=== PATIENT | male | born 1955 | race American Indian/Alaskan Native ===

== ENCOUNTER 2021-04-20 06:57 | Outpatient (CLI) | payer BC ==
--- NOTE | 2021-04-20 08:51 | Cat Scan Report ---
CT ABDOMEN AND PELVIS WITHOUT CONTRAST INDICATION / CLINICAL INFORMATION: HEMATURIA R31.9. TECHNIQUE: Axial CT images were obtained through the abdomen and pelvis without IV contrast. Sagittal and sheldon l reformatted images. All CT scans at this location are performed using CT dose reduction for ALARA b y means of automated exposure control. COMPARISON: No relevant comparison FINDINGS: LOWER CHEST: No significant abnormality. LIVER: There are scattered tiny hypodensities throughout the liver which are incompletely characteriz ed on this exam. These probably represent multiple tiny cysts or hemangiomas measuring less than 1 cm . If further evaluation is needed, multi phase CT with contrast is recommended. The liver is otherwis e unremarkable. GALLBLADDER: No significant abnormality. BILE DUCTS: No significant abnormality. PANCREAS: No significant abnormality. SPLEEN: No significant abnormality. ADRENALS: No significant abnormality. RIGHT KIDNEY and URETER: A punctate calyceal stone is identified near mid pole. No evidence for renal cystic disease or obvious mass. There is mild dilatation of the distal right ureter near the UVJ. Th is may represent a small ureterocele. LEFT KIDNEY and URETER: No significant abnormality. STOMACH and SMALL BOWEL: No significant abnormality. COLON: There is moderate fecal retention. Colon is otherwise unremarkable. APPENDIX: No significant abnormality. PERITONEUM: No free fluid. No free air. No fluid collection. LYMPH NODES: No significant adenopathy. AORTA and ARTERIES: Mild atherosclerotic calcification without acute abnormality. IVC and VEINS: No significant abnormality. URINARY BLADDER: No significant abnormality. REPRODUCTIVE ORGANS: No significant abnormality. ADDITIONAL FINDINGS: None. SKELETAL SYSTEM: Moderate degenerative changes are noted in the lower lumbar spine. No acute fracture or bone lesion is appreciated. IMPRESSION: Punctate solitary right renal stone as described. No hydronephrosis. Possible ureterocele at the righ t UVJ. Moderate constipation. Multiple tiny liver hypodensities as described which I suspect represent tiny cysts and/or hemangioma s. See above. Signer Name: Hernan Araujo Jr, MD Signed: 04/20/2021 8:47 AM Workstation Name: [id number]
== END 2021-04-20 06:58 | disposition home or self-care (01) ==
LOC: CT 06:57
PROVIDERS: ATTEND Urology
DX: N20.0 Calculus of kidney (principal); R31.9 Hematuria, unspecified; K59.00 Constipation, unspecified; K76.89 Other specified diseases of liver; R19.5 Other fecal abnormalities; I70.0 Atherosclerosis of aorta; M47.816 Spondylosis without myelopathy or radiculopathy, lumbar region
CPT/HCPCS: 74176